=== PATIENT | male | born 1990 | race Caucasian/White ===

== ENCOUNTER 2023-07-27 11:43 | Inpatient (IN) ==
[2023-07-27 14:16] LABS: Urine Benzodiazepine Screen None Detected (None Detect); Urine Cannabinoids Screen Presumptive Positive (None Detect); Urine Opiates Screen None Detected (None Detect)
[2023-07-27 16:20] VITALS: BP 148/97
[2023-07-27] MEDS ORDERED: Al Hydrox/Mg Hydrox/Simet LIQ 30 ML UDC PO PRN (17:26)
[2023-07-28 08:40] LABS: HDL Cholesterol 86.4 mg/dL
[2023-07-28] MEDS: Vitamin THERAPEUTIC TAB PO SCH (08:42)
[2023-07-29] MEDS: Vitamin THERAPEUTIC TAB PO SCH (12:31)
[2023-07-30] MEDS: Vitamin THERAPEUTIC TAB PO SCH (12:30)
== END 2023-07-31 08:35 | disposition home or self-care (01) | DRG 754 ==
LOC: ED 11:43 → EDHOLD 15:18 → BSU 15:26
PROVIDERS: ADMIT Student in an Organized Health Care Education/Training Program; ATTEND Student in an Organized Health Care Education/Training Program